=== PATIENT | male | born 1945 | race Caucasian/White ===

== ENCOUNTER 2020-10-03 21:16 | Emergency (ER) | payer OTHER ==
[~2020-10-03 21:16] MED LIST: ASCO100031 PO; ASPI-1026 PO; FINA5TAB41 PO; GABA300S PO; HYDR25TA PO; LOSA100T58 PO; METF-444 PO; NAPR-1023 PO; TAMS-1 PO; VERE240SR PO
== END 2020-10-03 21:56 | disposition home or self-care (01) ==
LOC: EDH 21:16
DX: N30.91 Cystitis, unspecified with hematuria (principal); R33.9 Retention of urine, unspecified; I10 Essential (primary) hypertension; E11.9 Type 2 diabetes mellitus without complications; Z87.891 Personal history of nicotine dependence
CPT/HCPCS: 51702